=== PATIENT | male | born 1970 | race Caucasian/White ===

== ENCOUNTER 2018-07-01 17:54 | Inpatient (IN) | payer OTHER ==
[~2018-07-01] VITALS: Ht 165.1 cm; Wt 76.5 kg
[2018-07-01 21:00] VITALS: BP 151/89; PULSE 103; RESP 18
[2018-07-01 21:06] VITALS: PULSE 99
--- NOTE | 2018-07-01 22:18 | HP ---
Date/Time of Note Date/Time of Note DATE: 07/01/18 TIME: 22:18 Assessment/Plan VTE Prophylaxis SCD applied (from Nsg): Yes Pharmacological prophylaxis: NA/contraindicated Pharm contraindication: other (Patient with alcohol abuse and currently he is altered so there is no way to verify GI bleed) Assessment/Plan Assessment/Plan 1. Alcoholic intoxication/withdrawal -MVI, folic acid, thiamine -Librium with as needed Ativan -IV fluid 2. Decompensated alcoholic liver disease with ascites -Patient had a paracentesis at the outside facility, but I do not know how much was removed -Will order abdominal ultrasound here. Additional imaging with CT will be considered 3. Hypertension: BP currently was in acceptable range HPI/ROS Admit Date/Time Admit Date/Time Jul 01, 2018 at 21:05 Hx of Present Illness This is a 48-year-old male with a history of hypertension, dyslipidemia and alcohol abuse who initially presented on outside hospital complaining of abdominal pain. Symptoms been going on for the past several days. Patient has been drinking. Reportedly he was anxious and had tremors. At the outside facility he he had ultrasound-guided paracentesis. I am not sure how much was removed. Lab shows bilirubin of 3.4. I do not see aminotransferases. He was transferred to [facility] for insurance reason. Currently patient is significantly agitated with tremors. Obtaining any information has been difficult. His is at the bedside and through the help of sitter drug abuse counselor, she said that he has been drinking daily. Currently patient has been placed on restraints. PMH/Family/Social Past Medical History Medical History: other (See HPI) Medications Current Medications IV Flush (NS 3 ml) 3 ml PER PROTOCOL IV ; Start 07/01/18 at 22:30; Status UNV Lorazepam (Ativan) 1 mg Q6H PRN IV ANXIETY; Start 07/01/18 at 22:30; Status UNV Ondansetron HCl (Zofran Inj) 4 mg Q6H PRN IV NAUSEA AND/OR VOMITING; Start 07/01/18 at 22:30; Status UNV Acetaminophen (Tylenol Tab) 650 mg Q6H PRN PO PAIN LEVEL 1-3 OR FEVER; Start 07/01/18 at 22:30; Status UNV Acetaminophen/ Hydrocodone Bitart ([place] (5/325)) 1 tab Q6H PRN PO PAIN LEVEL 4-6; Start 07/01/18 at 22:30; Status UNV Famotidine (Pepcid) 20 mg Q12 PO ; Start 07/02/18 at 09:00; Status UNV Chlordiazepoxide (Librium) 50 mg TID PO ; Start 07/01/18 at 22:30; Status UNV Multivitamins Therapeutic (Theragran) 1 tab DAILY PO ; Start 07/02/18 at 09:00; Status UNV Thiamine HCl (Vitamin B1) 100 mg DAILY PO ; Start 07/02/18 at 09:00; Status UNV Folic Acid (Folic Acid) 1 mg DAILY PO ; Start 07/02/18 at 09:00; Status UNV Lorazepam (Ativan) 2 mg Q3H PRN IV etoh w/d; Start 07/01/18 at 22:30; Status UNV Coded Allergies: No Known Allergy (Unverified , 07/01/18) Past Surgical History Past Surgical Hx: other (See HPI) Family History Significant Family History: no pertinent family hx Social History Alcohol Use: heavy Smoking Status: Unknown if ever smoked Drug Use: other (Unknown) Exam/Review of Systems Exam Constitutional: other (Agitated/combative) Cardiovascular: other (Tachycardic regular rhythm) Gastrointestinal: soft XIOMARA CHARLES MD Jul 01, 2018 22:18
[2018-07-01 22:23] VITALS: Ht 165.1 cm; Wt 76.5 kg
[2018-07-01] MEDS ORDERED: CHLORDIAZEPOXIDE 25 MG CAP PO SCH (22:30)
[2018-07-01] MEDS ORDERED: HYDROCODONE/APAP (5/325) TAB PO PRN (22:30)
[2018-07-01] MEDS ORDERED: ACETAMINOPHEN 325 MG TAB PO PRN (22:30)
[2018-07-01] MEDS ORDERED: NACL 0.9% 3 ML SYG IV SCH (22:30)
[2018-07-01] MEDS ORDERED: ONDANSETRON 4 MG INJ IV PRN (22:30)
[2018-07-02] VITALS (16 sets, daily range): BP systolic 109–136; BP diastolic 59–88; PULSE 85–150; RESP 17–20
[2018-07-02] MEDS: LORAZEPAM 2 MG INJ IV PRN ×6 (01:09→23:43)
--- NOTE | 2018-07-02 04:45 | NUR ---
Patient became agitated and anxious, removing rn cardiac cath, ID band, IV saline lock, gown and trying to get out of bed. at bedside but unable to control patient. Patient at one point sat in the recycliner and doesn't want to go back in bed. Notified Dr. Christianson, per MD ok to give another dose of ativan 2mg. Patient now back in bed and able to give ativan as ordered. will continue to monitor per protocol.
[2018-07-02] MEDS ORDERED: DIPHENHYDRAMINE 50 MG INJ ONE (05:21)
[2018-07-02] MEDS ORDERED: HALOPERIDOL 5 MG INJ ONE (05:26)
[2018-07-02] MEDS ORDERED: HALOPERIDOL 5 MG INJ IM ONE (05:27)
[2018-07-02] MEDS ORDERED: DIPHENHYDRAMINE 50 MG INJ IV ONE (05:30)
--- NOTE | 2018-07-02 05:33 | NUR ---
eoss: Patient become more combative and agitated. Dr. Christianson notified. ordered for Benadryl and Haldol IM. Patient at this time in bed and calm but still confused. Safety measures followed. Chart reviewed. will continue to monitor per protocol. Plan of care remains the same.
--- NOTE | 2018-07-02 07:47 | NUR ---
0600: Patient still uncooperative. trying to get out of bed and remove lines and monitor. Sitter ordered for safety. 0635: patient combative and hitting staff and , unable to control patient. Bilateral wrist restraint started. Will notify Dr. Christianson. continue to monitor per protocol.
--- NOTE | 2018-07-02 07:58 | NUR ---
0720: Per Dr. Meghan kramer to restraint patient. will continue to monitor per protocol.
[2018-07-02] MEDS: THIAMINE 100 MG TAB PO SCH (08:58)
[2018-07-02] MEDS: FAMOTIDINE 20 MG TAB PO SCH ×2 (08:58→23:52)
[2018-07-02] MEDS ORDERED: SOD CHLORIDE 0.9% 1,000 ML IV ONE (09:00)
[2018-07-02] MEDS ORDERED: FOLIC ACID 1 MG TAB PO SCH (09:00)
[2018-07-02] MEDS ORDERED: MULTIVITAMINS THERAPEUTIC TAB PO SCH (09:00)
[2018-07-02] MEDS: CHLORDIAZEPOXIDE 25 MG CAP PO SCH ×3 (09:10→23:28)
[2018-07-02] MEDS ORDERED: LORAZEPAM 2 MG INJ IV ONE (09:30)
[2018-07-02] MEDS ORDERED: MAGNESIUM SULFATE 4 GM/100 ML 100 ML IVPB ONE (10:30)
--- NOTE | 2018-07-02 12:20 | NUR ---
Report given by PANCHO Snow to continue care for patient.
[2018-07-02] MEDS ORDERED: POTASSIUM CHLORIDE (SR) 20 MEQ TAB PO STA (13:18)
--- NOTE | 2018-07-02 13:26 | PN ---
Date/Time of Note Date/Time of Note DATE: 07/02/18 TIME: 13:23 Assessment/Plan VTE Prophylaxis Risk score (from Ns)>0 risk: 3 SCD applied (from Ns): Yes Pharmacological prophylaxis: other Lines/Catheters IV Catheter Type (from Nrs): Peripheral IV Urinary Cath still in place: No Assessment/Plan Hospital Course S: Patient agitated this morning, presently in restraints. Did take his p.o. medications per nursing staff. O: VS - see below PE: General: Lying in bed, in restraints Head: Normocephalic, atraumatic. Eyes: Pupils equal round reactive to light extra muscles are intact ENT: Moist mucous membranes Neck: Supple, no lymphadenopathy Respiratory: Lungs clear bilaterally, no distress Cardiovascular: some tachycardic heart rate Abdominal: Soft, non-tender, non-distended, no peritoneal signs MSK: No edema, no unilateral swelling Neurologic: No focal deficits Assessment/Plan: 48-year-old male with a history of hypertension, dyslipidemia and alcohol abuse who initially presented on outside hospital complaining of abdominal pain, with signs of alcohol intoxication. 1. Alcoholic intoxication/withdrawal -patient now requiring restraints. -Continue MVI, folic acid, thiamine -Patient also taking p.o. Librium with as needed Ativan -IV fluid, will also add banana bag 2. Decompensated alcoholic liver disease with ascites-Patient had a parace ntesis at the outside facility, but apparently unclear how much fluid was removed -Ordered for abdominal ultrasound here, follow-up results - Given distention seen on physical exam, patient may benefit from paracentesis, again will follow up the abdominal ultrasound results first -Also check ammonia levels, strong suspicion of possible advanced liver disease, particularly given the elevated liver function tests 3. Hypertension: BP currently was in acceptable range -Monitor for now Result Diagram: 07/02/18 0633 07/02/18 0633 Results 24hrs Laboratory Tests Test 07/02/18 06:33 White Blood Count 9.9 Red Blood Count 3.49 L Hemoglobin 12.9 L Hematocrit 36.0 L Mean Corpuscular Volume 103.2 H Mean Corpuscular Hemoglobin 37.0 H Mean Corpuscular Hemoglobin Concent 35.8 Red Cell Distribution Width 13.6 Platelet Count 108 L Mean Platelet Volume 10.4 Immature Granulocytes % 0.400 Neutrophils % 74.5 Lymphocytes % 11.9 L Monocytes % 9.9 Eosinophils % 2.4 Basophils % 0.9 Nucleated Red Blood Cells % 0.0 Immature Granulocytes # 0.040 H Neutrophils # 7.4 Lymphocytes # 1.2 Monocytes # 1.0 H Eosinophils # 0.2 Basophils # 0.1 Nucleated Red Blood Cells # 0.0 Sodium Level 138 Potassium Level 3.2 L Chloride Level 101 Carbon Dioxide Level 27 Anion Gap 10 Blood Urea Nitrogen 6 L Creatinine 0.49 L Est Glomerular Filtrat Rate mL/min > 60 Glucose Level 92 Hemoglobin A1c 4.6 Calcium Level 9.0 Magnesium Level 1.2 L Total Bilirubin 2.6 H Direct Bilirubin 0.40 H Indirect Bilirubin 2.2 H Aspartate Amino Transf (AST/SGOT) 99 H Alanine Aminotransferase (ALT/SGPT) 21 Alkaline Phosphatase 156 H Total Protein 7.5 Albumin 2.9 L Globulin 4.60 H Albumin/Globulin Ratio 0.63 Triglycerides Level 77 Cholesterol Level 124 LDL Cholesterol, Calculated 83 HDL Cholesterol 26 L Cholesterol/HDL Ratio 4.7 Hepatitis B Surface Antigen NEGATIVE Hepatitis B Surface Antibody NEGATIVE Hepatitis B Core Total Antibody NEGATIVE Hepatitis C Antibody Pending Exam/Review of Systems Vital Signs Vitals Vital Signs Date Temp Pulse Resp B/P (MAP) Pulse Ox O2 O2 Flow FiO2 Time Delivery Rate 07/02/18 98.2 94 20 122/69 90 Room Air 12:24 (86) Medications Medications Current Medications IV Flush (NS 3 ml) 3 ml PER PROTOCOL IV ; Start 07/01/18 at 22:30 Lorazepam (Ativan) 1 mg Q6H PRN IV ANXIETY Last administered on 07/02/18at 01:09; Admin Dose 1 MG; Start 07/01/18 at 22:30 Ondansetron HCl (Zofran Inj) 4 mg Q6H PRN IV NAUSEA AND/OR VOMITING; Start 07/01/18 at 22:30 Acetaminophen (Tylenol Tab) 650 mg Q6H PRN PO PAIN LEVEL 1-3 OR FEVER; Start 07/01/18 at 22:30 Acetaminophen/ Hydrocodone Bitart ([place] (5/325)) 1 tab Q6H PRN PO PAIN LEVEL 4-6; Start 07/01/18 at 22:30 Famotidine (Pepcid) 20 mg Q12 PO Last administered on 07/02/18at 08:58; Admin Dose 20 MG; Start 07/02/18 at 09:00 Multivitamins Therapeutic (Theragran) 1 tab DAILY PO Last administered on 07/02/18 08:58; Admin Dose 1 TAB; Start 07/02/18 at 09:00 Thiamine HCl (Vitamin B1) 100 mg DAILY PO Last administered on 07/02/18 08:58; Admin Dose 100 MG; Start 07/02/18 at 09:00 Folic Acid (Folic Acid) 1 mg DAILY PO Last administered on 07/02/18 08:57; Admin Dose 1 MG; Start 07/02/18 at 09:00 Lorazepam (Ativan) 2 mg Q3H PRN IV etoh w/d Last administered on 07/02/18 07:33; Admin Dose 2 MG; Start 07/01/18 at 22:30 Chlordiazepoxide (Librium) 100 mg TID PO Last administered on 07/02/18 09:10; Admin Dose 100 MG; Start 07/02/18 at 09:00 Magnesium Sulfate 100 ml @ 25 mls/hr ONCE ONCE IVPB Last administered on 07/02/18at 10:37; Admin Dose 25 MLS/HR; Start 07/02/18 at 10:30; Stop 07/02/18 at 14:29 Sodium Chloride 1,000 ml @ 100 mls/hr Q10H IV ; Start 07/02/18 at 12:00 Multivitamins 10 ml/Thiamine HCl 100 mg/Folic Acid 1 mg/Sodium Chloride 1,011.2 ml @ 125 mls/ hr DAILY@09 IVPB ; Start 07/03/18 at 09:00; Status LETI WOMACK Jul 02, 2018 13:26
[2018-07-02] MEDS: SOD CHLORIDE 0.9% 1,000 ML IV SCH ×2 (14:00→23:52)
[2018-07-02] MEDS: MULTIVITAMINS 10 ML, FOLIC ACID 1 MG in SOD CHLORIDE 0.9% 1,000 ML IVPB SCH (14:13)
[2018-07-03] VITALS (19 sets, daily range): BP systolic 102–129; BP diastolic 62–76; PULSE 79–97; RESP 18–19
[2018-07-03] MEDS: SOD CHLORIDE 0.9% 1,000 ML IV SCH ×2 (08:00→17:50)
[2018-07-03] MEDS: MULTIVITAMINS 10 ML, FOLIC ACID 1 MG in SOD CHLORIDE 0.9% 1,000 ML IVPB SCH (08:28)
[2018-07-03] MEDS: THIAMINE 100 MG TAB PO SCH (08:29)
[2018-07-03] MEDS: FAMOTIDINE 20 MG TAB PO SCH ×2 (08:29→21:15)
[2018-07-03] MEDS: CHLORDIAZEPOXIDE 25 MG CAP PO SCH ×3 (08:29→21:16)
--- NOTE | 2018-07-03 11:41 | PN ---
Date/Time of Note Date/Time of Note DATE: 07/03/18 TIME: 11:38 Assessment/Plan VTE Prophylaxis Risk score (from Ns)>0 risk: 4 SCD applied (from Ns): Yes Pharmacological prophylaxis: other Lines/Catheters IV Catheter Type (from Nrsg): Peripheral IV Urinary Cath still in place: No (CONDOM CATH) Assessment/Plan Hospital Course S: Patient less agitated this morning, still in restraints. O: VS - see below PE: General: Lying in bed, in restraints, family at the bedside Head: Normocephalic, atraumatic. Eyes: Pupils equal round reactive to light extra muscles are intact ENT: Moist mucous membranes Neck: Supple, no lymphadenopathy Respiratory: Lungs clear bilaterally, no distress Cardiovascular: some tachycardic heart rate Abdominal: Soft, non-tender, non-distended, no peritoneal signs MSK: No edema, no unilateral swelling Neurologic: No focal deficits Abdominal ultrasound July 02, 2018: IMPRESSION: Liver cirrhosis with a small amount of ascites. Thickened and edematous gallbladder wall with no evidence of gallstones. Assessment/Plan: 48-year-old male with a history of hypertension, dyslipidemia and alcohol abuse who initially presented on outside hospital complaining of abdominal pain, with signs of alcohol intoxication. 1. Alcoholic intoxication/withdrawal -slowly improving, patient on restraints. -Continue MVI, folic acid, thiamine -Continue p.o. Librium with as needed Ativan -IV fluid, banana bag 2. Decompensated alcoholic liver disease with ascites-Patient had a paracentesis at the outside facility, but apparently unclear how much fluid was removed -Patient has elevated ammonia levels, add lactulose, trend ammonia -Counseled on drinking cessation 3. Hypertension: BP stable -Monitor for now Result Diagram: 07/03/18 0626 07/02/18 0633 Results 24hrs Laboratory Tests Test 07/02/18 18:27 07/03/18 06:26 07/03/18 09:10 Ammonia 34 H 57 #H White Blood Count 7.7 # Red Blood Count 3.09 L Hemoglobin 11.6 L Hematocrit 32.4 L Mean Corpuscular Volume 104.9 H Mean Corpuscular Hemoglobin 37.5 H Mean Corpuscular Hemoglobin Concent 35.8 Red Cell Distribution Width 14.4 Platelet Count 83 #L Mean Platelet Volume 10.4 Immature Granulocytes % 0.500 H Neutrophils % 68.6 Lymphocytes % 14.5 L Monocytes % 10.7 Eosinophils % 4.7 Basophils % 1.0 Nucleated Red Blood Cells % 0.0 Immature Granulocytes # 0.040 H Neutrophils # 5.3 Lymphocytes # 1.1 Monocytes # 0.8 Eosinophils # 0.4 Basophils # 0.1 Nucleated Red Blood Cells # 0.0 Phosphorus Level 3.6 Magnesium Level 1.6 L Total Bilirubin 2.6 H Direct Bilirubin 0.50 H Indirect Bilirubin 2.1 H Aspartate Amino Transf (AST/SGOT) 87 H Alanine Aminotransferase (ALT/SGPT) 23 Alkaline Phosphatase 117 Total Protein 6.2 # Albumin 2.4 L Urine Color TOMMIE Urine Clarity CLOUDY A Urine pH 8.0 Urine Specific [place] 1.009 Urine Ketones NEGATIVE Urine Nitrite NEGATIVE Urine Bilirubin NEGATIVE Urine Urobilinogen 1+ H Urine Leukocyte Esterase NEGATIVE Urine Microscopic RBC 1 Urine Microscopic WBC 2 Urine Amorphous Crystals FEW A Urine Bacteria FEW A Urine Hemoglobin NEGATIVE Urine Glucose NEGATIVE Urine Total Protein NEGATIVE Exam/Review of Systems Vital Signs Vitals Vital Signs Date Temp Pulse Resp B/P (MAP) Pulse Ox O2 O2 Flow FiO2 Time Delivery Rate 07/03/18 97.4 81 18 102/67 98 10:47 (79) 07/02/18 Room Air 12:24 Intake and Output 07/02/18 07/02/18 07/03/18 1515:00 23:00 07:00 IntakeIntake Total 100 ml 1075 ml BalanceBalance 100 ml 1075 ml Medications Medications Current Medications IV Flush (NS 3 ml) 3 ml PER PROTOCOL IV ; Start 07/01/18 at 22:30 Lorazepam (Ativan) 1 mg Q6H PRN IV ANXIETY Last administered on 07/02/18at 01 :09; Admin Dose 1 MG; Start 07/01/18 at 22:30 Ondansetron HCl (Zofran Inj) 4 mg Q6H PRN IV NAUSEA AND/OR VOMITING; Start 07/01/18 at 22:30 Acetaminophen (Tylenol Tab) 650 mg Q6H PRN PO PAIN LEVEL 1-3 OR FEVER; Start 07/01/18 at 22:30 Acetaminophen/ Hydrocodone Bitart ([place] (5/325)) 1 tab Q6H PRN PO PAIN LEVEL 4-6; Start 07/01/18 at 22:30 Famotidine (Pepcid) 20 mg Q12 PO Last administered on 07/03/18 08:29; Admin Dose 20 MG; Start 07/02/18 at 09:00 Multivitamins Therapeutic (Theragran) 1 tab DAILY PO Last administered on 07/02/18 08:58; Admin Dose 1 TAB; Start 07/02/18 at 09:00; Status Hold Thiamine HCl (Vitamin B1) 100 mg DAILY PO Last administered on 07/03/18 08:29; Admin Dose 100 MG; Start 07/02/18 at 09:00 Folic Acid (Folic Acid) 1 mg DAILY PO Last administered on 07/02/18 08:57; Admin Dose 1 MG; Start 07/02/18 at 09:00; Status Hold Lorazepam (Ativan) 2 mg Q3H PRN IV etoh w/d Last administered on 07/02/18 23:43; Admin Dose 2 MG; Start 07/01/18 at 22:30 Chlordiazepoxide (Librium) 100 mg TID PO Last administered on 07/03/18 08:29; Admin Dose 100 MG; Start 07/02/18 at 09:00 Sodium Chloride 1,000 ml @ 100 mls/hr Q10H IV Last administered on 07/02/18 23:52; Admin Dose 100 MLS/HR; Start 07/02/18 at 12:00 Multivitamins 10 ml/Folic Acid 1 mg/Sodium Chloride 1,010.2 ml @ 125 mls/ hr DAILY@09 IVPB Last administered on 07/03/18 08:28; Admin Dose 125 MLS/HR; Sta rt 07/02/18 at 15:00 Magnesium Sulfate 50 ml @ 25 mls/hr ONCE ONCE IVPB ; Start 07/03/18 at 12:00; Stop 07/03/18 at 13:59; Status LETI WOMACK Jul 03, 2018 11:41
[2018-07-03] MEDS ORDERED: MAGNESIUM SULFATE 2 GM/50 ML 50 ML IVPB ONE (12:00)
[2018-07-03] MEDS: LACTULOSE 30ML CUP PO SCH ×3 (12:08→21:15)
[2018-07-03] MEDS ORDERED: POTASSIUM CHLORIDE (SR) 20 MEQ TAB PO STA (13:25)
--- NOTE | 2018-07-03 18:54 | NUR ---
EOSS: Patient is AAOx2-3, more alert and able to follow commands today. SR on the monitor. VSS. Bilateral soft limb restraints in place as pt still has periods of agitation. 1 large BM during shift. Condom cath in place. Repositioned q2h w/ assist. Able to take meds crushed w/ chocolate pudding. Family at bedside. Hourly rounding done, fall precautions initiated, all needs attended. Pt is stable - will endorse to oncoming shift.
[2018-07-04] VITALS (17 sets, daily range): BP systolic 112–126; BP diastolic 70–81; PULSE 65–99; RESP 18–20
[2018-07-04] MEDS: SOD CHLORIDE 0.9% 1,000 ML IV SCH ×2 (04:01→14:00)
[2018-07-04] MEDS: LACTULOSE 30ML CUP PO SCH ×3 (05:41→21:49)
[2018-07-04] MEDS: CHLORDIAZEPOXIDE 25 MG CAP PO SCH ×2 (09:10→21:50)
[2018-07-04] MEDS: THIAMINE 100 MG TAB PO SCH (09:12)
[2018-07-04] MEDS: FAMOTIDINE 20 MG TAB PO SCH ×2 (09:12→21:50)
[2018-07-04] MEDS: SPIRONOLACTONE 50 MG TAB PO SCH (09:13)
[2018-07-04] MEDS: MULTIVITAMINS 10 ML, FOLIC ACID 1 MG in SOD CHLORIDE 0.9% 1,000 ML IVPB SCH (09:17)
[2018-07-04] MEDS: LORAZEPAM 2 MG INJ IV PRN (09:51)
--- NOTE | 2018-07-04 10:41 | PN ---
Date/Time of Note Date/Time of Note DATE: 07/04/18 TIME: 10:35 Assessment/Plan VTE Prophylaxis Risk score (from Ns)>0 risk: 4 SCD applied (from Ns): Yes Pharmacological prophylaxis: NA/contraindicated Pharm contraindication: low risk/ambulating Lines/Catheters IV Catheter Type (from Nrs): Peripheral IV Urinary Cath still in place: No (Condom Cath) Assessment/Plan Assessment/Plan 48-year-old male with a history of hypertension, dyslipidemia and alcohol abuse who initially presented on outside hospital complaining of abdominal pain, with signs of alcohol intoxication. # Alcoholic intoxication/withdrawal - Frequent reorientation. - Continue MVI, folic acid, thiamine - Continue p.o. Librium with as needed Ativan - IV fluid, banana bag #L eye blepharitis/conjunctivitis - Ophthalmic gentamicin - Warm damp washcloth to clean eye # Cirrhosis with ascites - Patient had a paracentesis at the outside facility, but apparently unclear how much fluid was removed - Mental status is more consistent with delerium/EtOH withdrawal instead of hepatic encephalopathy.... but will continue lactulose. - Counseled on drinking cessation #Tobacco use - Multiple cigars per day - Will start nicotine patch. Result Diagram: 07/04/18 0552 07/04/18 0552 Results 24hrs Laboratory Tests Test 07/03/18 12:11 07/04/18 05:52 Sodium Level 142 142 Potassium Level 3.2 L 3.2 L Chloride Level 111 H 113 H Carbon Dioxide Level 24 24 Anion Gap 7 5 Blood Urea Nitrogen 5 L 4 L Creatinine 0.41 L 0.42 L Est Glomerular Filtrat Rate mL/min > 60 > 60 Glucose Level 86 82 Calcium Level 8.4 8.2 L White Blood Count 7.7 Red Blood Count 3.33 L Hemoglobin 12.4 L Hematocrit 34.5 L Mean Corpuscular Volume 103.6 H Mean Corpuscular Hemoglobin 37.2 H Mean Corpuscular Hemoglobin Concent 35.9 Red Cell Distribution Width 14.2 Platelet Count 92 L Mean Platelet Volume 9.8 Immature Granulocytes % 0.300 Neutrophils % 69.3 Lymphocytes % 14.0 L Monocytes % 11.7 H Eosinophils % 3.8 Basophils % 0.9 Nucleated Red Blood Cells % 0.0 Immature Granulocytes # 0.020 Neutrophils # 5.3 Lymphocytes # 1.1 Monocytes # 0.9 Eosinophils # 0.3 Basophils # 0.1 Nucleated Red Blood Cells # 0.0 Phosphorus Level 3.1 Magnesium Level 1.5 L Ammonia 30 # Subjective 24 Hr Interval Summary Free Text/Dictation Patient combative, trying to get out of bed, not responding to commands this morning; got Ativan. and daughter at bedside. Reporting patient is a heavy smoker in addition to heavy alcohol use. He is much more confused and disoriented than usual baseline. Exam/Review of Systems Vital Signs Vitals Vital Signs Date Temp Pulse Resp B/P (MAP) Pulse Ox O2 O2 Flow FiO2 Time Delivery Rate 07/04/18 97.7 87 18 122/76 94 09:32 (91) 07/02/18 Room Air 12:24 Intake and Output 07/03/18 07/03/18 07/04/18 1515:00 23:00 07:00 IntakeIntake Total 1850 ml 250 ml OutputOutput Total 700 ml 2000 ml BalanceBalance 1150 ml -1750 ml Exam General: Lying in bed, in restraints, family at the bedside Head: Normocephalic, atraumatic. Eyes: L eye with what appears to be blepharitis with yellow crusted exudate ENT: Moist mucous membranes Neck: Supple, no lymphadenopathy Respiratory: Lungs clear bilaterally, no distress Cardiovascular: some tachycardic heart rate Abdominal: Soft, non-tender, non-distended, no peritoneal signs MSK: No edema, no unilateral swelling Neurologic: A&O to name only; disoriented to location ("home"), time ("year is 999, month is 9"), and situation. Recognizes and daughter at bedside. Medications Medications Current Medications IV Flush (NS 3 ml) 3 ml PER PROTOCOL IV ; Start 07/01/18 at 22:30 Lorazepam (Ativan) 1 mg Q6H PRN IV ANXIETY Last administered on 07/02/18at 01:09; Admin Dose 1 MG; Start 07/01/18 at 22:30 Ondansetron HCl (Zofran Inj) 4 mg Q6H PRN IV NAUSEA AND/OR VOMITING; Start 07/01/18 at 22:30 Acetaminophen (Tylenol Tab) 650 mg Q6H PRN PO PAIN LEVEL 1-3 OR FEVER; Start 07/01/18 at 22:30 Acetaminophen/ Hydrocodone Bitart ([place] (5/325)) 1 tab Q6H PRN PO PAIN LEVEL 4-6; Start 07/01/18 at 22:30 Famotidine (Pepcid) 20 mg Q12 PO Last administered on 07/04/18 09:12; Admin Dose 20 MG; Start 07/02/18 at 09:00 Multivitamins Therapeutic (Theragran) 1 tab DAILY PO Last administered on 07/02/18 08:58; Admin Dose 1 TAB; Start 07/02/18 at 09:00; Status Hold Thiamine HCl (Vitamin B1) 100 mg DAILY PO Last administered on 07/04/18 09:12; Admin Dose 100 MG; Start 07/02/18 at 09:00 Folic Acid (Folic Acid) 1 mg DAILY PO Last administered on 07/02/18 08:57; Admin Dose 1 MG; Start 07/02/18 at 09:00; Status Hold Lorazepam (Ativan) 2 mg Q3H PRN IV etoh w/d Last administered on 07/04/18 09:51; Admin Dose 2 MG; Start 07/01/18 at 22:30 Sodium Chloride 1,000 ml @ 100 mls/hr Q10H IV Last administered on 07/04/18 04:01; Admin Dose 100 MLS/HR; Start 07/02/18 at 12:00 Multivitamins 10 ml/Folic Acid 1 mg/Sodium Chloride 1,010.2 ml @ 125 mls/ hr DAILY@09 IVPB Last administered on 07/04/18 09:17; Admin Dose 125 MLS/HR; Start 07/02/18 at 15:00 Lactulose (Enulose) 20 gm Q8 PO Last administered on 07/04/18 05:41; Admin Dose 20 GM; Start 07/03/18 at 12:00 Spironolactone (Aldactone) 50 mg DAILY PO Last administered on 07/04/18 09:13; Admin Dose 50 MG; Start 07/04/18 at 09:00 Chlordiazepoxide (Librium) 100 mg Q12H PO Last administered on 07/04/18 09:10; Admin Dose 100 MG; Start 07/04/18 at 09:00 LUI GENAO MD Jul 04, 2018 10:41
[2018-07-04] MEDS ORDERED: GENTAMICIN 0.3% 3.5 GM OPH OINT LEFT EYE SCH (11:00)
[2018-07-04] MEDS: NICOTINE (21 MG/24 HR) PATCH TRANSDERM SCH (11:00)
[2018-07-04] MEDS ORDERED: POTASSIUM CHLORIDE (SR) 20 MEQ TAB PO STA (11:33)
[2018-07-04] MEDS: GENTAMICIN 0.3% 5 ML OPH LEFT EYE SCH ×3 (12:20→21:51)
--- NOTE | 2018-07-04 15:43 | NUR ---
pt is a/ox1, very confused , the family was at the bedside and pt did not even know that is his and daughter , pull out his IV again , and also the condom cath 2 times and his legs are always outside the bed rail . family at the bedside however , they did not really do anything. there are more than 15 people in the room and many kids, very noisy. notified to charge nurse, and report to PANCHO lopez.
--- NOTE | 2018-07-04 19:59 | NUR ---
EOSS: pt VSS, confused and easily agitated, on restraints (renewed during day shift), family educated on need for visitor policy to ensure safety and reduce stimuli for pt. Family agreed but still had many visitors throughout day but were much quieter and pt's agitation subsided. Took over pt from JuChen at 1600. All needs met and questions answered to best of ability.
[2018-07-05] VITALS (18 sets, daily range): BP systolic 99–128; BP diastolic 61–83; PULSE 68–87; RESP 16–21
[2018-07-05] MEDS: GENTAMICIN 0.3% 5 ML OPH LEFT EYE SCH ×6 (01:00→21:29)
[2018-07-05] MEDS: LACTULOSE 30ML CUP PO SCH ×3 (06:19→21:27)
[2018-07-05] MEDS ORDERED: POTASSIUM CHLORIDE 20 MEQ POWDER FOR ORAL SOLN PO ONE (09:00)
[2018-07-05] MEDS: MULTIVITAMINS 10 ML, FOLIC ACID 1 MG in SOD CHLORIDE 0.9% 1,000 ML IVPB SCH (09:08)
[2018-07-05] MEDS: THIAMINE 100 MG TAB PO SCH (09:09)
[2018-07-05] MEDS: SPIRONOLACTONE 50 MG TAB PO SCH (09:09)
[2018-07-05] MEDS: CHLORDIAZEPOXIDE 25 MG CAP PO SCH ×2 (09:09→21:28)
[2018-07-05] MEDS: FAMOTIDINE 20 MG TAB PO SCH ×2 (09:10→21:28)
[2018-07-05] MEDS: NICOTINE (21 MG/24 HR) PATCH TRANSDERM SCH (09:11)
[2018-07-05] MEDS ORDERED: MAGNESIUM SULFATE 4 GM/100 ML 100 ML IVPB ONE (09:30)
[2018-07-05] MEDS: SOD CHLORIDE 0.9% 1,000 ML IV SCH ×3 (10:00→20:00)
--- NOTE | 2018-07-05 14:24 | PN ---
Date/Time of Note Date/Time of Note DATE: 07/05/18 TIME: 14:23 Assessment/Plan VTE Prophylaxis Risk score (from Ns)>0 risk: 4 SCD applied (from Ns): Yes Pharmacological prophylaxis: NA/contraindicated Pharm contraindication: low risk/ambulating Lines/Catheters IV C[facility] Type (from [facility]): Peripheral IV Urinary Cath still in place: No Assessment/Plan Assessment/Plan 48-year-old male with a history of hypertension, dyslipidemia and alcohol abuse who initially presented on outside hospital complaining of abdominal pain, with signs of alcohol intoxication. # Alcoholic intoxication/withdrawal - Frequent reorientation. - Continue MVI, folic acid, thiamine - Continue p.o. Librium with as needed Ativan - IV fluid, banana bag #L eye blepharitis/conjunctivitis - Ophthalmic gentamicin - Warm damp washcloth to clean eye # Cirrhosis with ascites - Patient had a paracentesis at the outside facility, but apparently unclear how much fluid was removed - Mental status is more consistent with delerium/EtOH withdrawal instead of hepatic encephalopathy.... but will continue lactulose. - Counseled on drinking cessation #Tobacco use - Multiple cigars per day - nicotine patch. Result Diagram: 07/05/18 0617 07/05/18 0617 Results 24hrs Laboratory Tests Test 07/05/18 06:17 White Blood Count 7.3 Red Blood Count 3.31 L Hemoglobin 12.4 L Hematocrit 35.3 L Mean Corpuscular Volume 106.6 H Mean Corpuscular Hemoglobin 37.5 H Mean Corpuscular Hemoglobin Concent 35.1 Red Cell Distribution Width 14.1 Platelet Count 92 L Mean Platelet Volume 9.9 Immature Granulocytes % 0.600 H Neutrophils % 65.4 Lymphocytes % 14.2 L Monocytes % 12.6 H Eosinophils % 5.7 Basophils % 1.5 Nucleated Red Blood Cells % 0.0 Immature Granulocytes # 0.040 H Neutrophils # 4.8 Lymphocytes # 1.0 Monocytes # 0.9 Eosinophils # 0.4 Basophils # 0.1 Nucleated Red Blood Cells # 0.0 Prothrombin Time 20.3 H Prothrombin Time Ratio 1.6 INR International Normalized Ratio 1.73 Activated Partial Thromboplast Time 42.5 H Sodium Level 140 Potassium Level 3.3 L Chloride Level 108 Carbon Dioxide Level 27 Anion Gap 5 Blood Urea Nitrogen 4 L Creatinine 0.49 L Est Glomerular Filtrat Rate mL/min > 60 Glucose Level 77 Calcium Level 8.3 L Phosphorus Level 3.6 Magnesium Level 1.2 L Total Bilirubin 1.7 H Direct Bilirubin 0.00 # Indirect Bilirubin 1.7 H Aspartate Amino Transf (AST/SGOT) 80 H Alanine Aminotransferase (ALT/SGPT) 27 Alkaline Phosphatase 111 Total Protein 6.3 Albumin 2.4 L Globulin 3.90 H Albumin/Globulin Ratio 0.61 Subjective 24 Hr Interval Summary Free Text/Dictation Patient resting in bed sleeping comfortably. Exam/Review of Systems Vital Signs Vitals Vital Signs Date Temp Pulse Resp B/P (MAP) Pulse Ox O2 O2 Flow FiO2 Time Delivery Rate 07/05/18 83 12:43 07/05/18 97.4 20 113/73 97 12:25 (86) 07/05/18 2.0 27 04:50 07/02/18 Room Air 12:24 Intake and Output 07/04/18 07/04/18 07/05/18 1515:00 23:00 07:00 IntakeIntake Total 200 ml 400 ml BalanceBalance 200 ml 400 ml Exam General: Lying in bed, in restraints, family at the bedside, sleeping comfortably Head: Normocephalic, atraumatic. Eyes: L eye with what appears to be blepharitis with yellow crusted exudate ENT: Moist mucous membranes Neck: Supple, no lymphadenopathy Respiratory: Lungs clear bilaterally, no distress Cardiovascular: some tachycardic heart rate Abdominal: Soft, non-tender, non-distended, no peritoneal signs MSK: No edema, no unilateral swelling Medications Medications Current Medications IV Flush (NS 3 ml) 3 ml PER PROTOCOL IV ; Start 07/01/18 at 22:30 Lorazepam (Ativan) 1 mg Q6H PRN IV ANXIETY Last administered on 07/02/18at 01:09; Admin Dose 1 MG; Start 07/01/18 at 22:30 Ondansetron HCl (Zofran Inj) 4 mg Q6H PRN IV NAUSEA AND/OR VOMITING; Start 07/01/18 at 22:30 Acetaminophen (Tylenol Tab) 650 mg Q6H PRN PO PAIN LEVEL 1-3 OR FEVER; Start 07/01/18 at 22:30 Acetaminophen/ Hydrocodone Bitart ([place] (5/325)) 1 tab Q6H PRN PO PAIN LEVEL 4-6 Last administered on 07/04/18 12:28; Admin Dose 1 TAB; Start 07/01/18 at 22:30 Famotidine (Pepcid) 20 mg Q12 PO Last administered on 07/05/18 09:10; Admin Dose 20 MG; Start 07/02/18 at 09:00 Multivitamins Therapeutic (Theragran) 1 tab DAILY PO Last administered on 07/02/18 08:58; Admin Dose 1 TAB; Start 07/02/18 at 09:00; Status Hold Thiamine HCl (Vitamin B1) 100 mg DAILY PO Last administered on 07/05/18 09:09; Admin Dose 100 MG; Start 07/02/18 at 09:00 Folic Acid (Folic Acid) 1 mg DAILY PO Last administered on 07/02/18 08:57; Admin Dose 1 MG; Start 07/02/18 at 09:00; Status Hold Lorazepam (Ativan) 2 mg Q3H PRN IV etoh w/d Last administered on 07/04/18 09:51; Admin Dose 2 MG; Start 07/01/18 at 22:30 Sodium Chloride 1,000 ml @ 100 mls/hr Q10H IV Last administered on 07/05/18 00:00; Admin Dose 100 MLS/HR; Start 07/02/18 at 12:00 Multivitamins 10 ml/Folic Acid 1 mg/Sodium Chloride 1,010.2 ml @ 125 mls/ hr DAILY@09 IVPB Last administered on 07/05/18 09:08; Admin Dose 125 MLS/HR; Start 07/02/18 at 15:00 Lactulose (Enulose) 20 gm Q8 PO Last administered on 07/05/18 06:19; Admin Dose 20 GM; Start 07/03/18 at 12:00 Spironolactone (Aldactone) 50 mg DAILY PO Last administered on 07/05/18 09:09; Admin Dose 50 MG; Start 07/04/18 at 09:00 Nicotine (Nicoderm 21 Mg/ 24hr) 1 patch DAILY TRANSDERM Last administered on 07/05/18 09:11; Admin Dose 1 PATCH; Start 07/04/18 at 11:00 Gentamicin Sulfate (Gentamicin 0.3% Oph Drop) 1 drop Q4 LEFT EYE Last administered on 07/05/18 13:31; Admin Dose 1 DROP; Start 07/04/18 at 13:00 Chlordiazepoxide (Librium) 50 mg Q12H PO ; Start 07/05/18 at 21:00 LUI GENAO MD Jul 05, 2018 14:24
--- NOTE | 2018-07-05 19:06 | NUR ---
EOSS: Pt. remained stable during shift. Pt. remained on restraints during shift. Clinical behavior unchanged. 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 Hourly rounding complete. All needs meet. Bed in lowest position. Bed alarm on. at bedside aware about plan of care. Administered all medications as scheduled. Will continue to monitor and report care to oncoming shift.
[2018-07-06] VITALS (7 sets, daily range): BP systolic 95–123; BP diastolic 53–79; PULSE 79–89; RESP 18–20
[2018-07-06] MEDS: GENTAMICIN 0.3% 5 ML OPH LEFT EYE SCH ×6 (01:00→20:36)
[2018-07-06] MEDS: LORAZEPAM 2 MG INJ IV PRN (02:44)
[2018-07-06] MEDS: LACTULOSE 30ML CUP PO SCH ×3 (05:12→20:36)
[2018-07-06] MEDS: SOD CHLORIDE 0.9% 1,000 ML IV SCH (05:12)
--- NOTE | 2018-07-06 07:49 | NUR ---
Nurses Note: Pt. off unit for AICD placement with Dr. Espinal. Addendum: 07/06/18 at 0750 by JENNA TAYLOR RN Amended: Links added. Addendum: 07/06/18 at 1019 by JENNA TAYLOR RN IGNORE. Charted on the wrong patient.
[2018-07-06] MEDS: MULTIVITAMINS 10 ML, FOLIC ACID 1 MG in SOD CHLORIDE 0.9% 1,000 ML IVPB SCH (09:07)
[2018-07-06] MEDS: FAMOTIDINE 20 MG TAB PO SCH ×2 (09:08→20:36)
[2018-07-06] MEDS: NICOTINE (21 MG/24 HR) PATCH TRANSDERM SCH (09:08)
[2018-07-06] MEDS: SPIRONOLACTONE 50 MG TAB PO SCH (09:08)
[2018-07-06] MEDS: CHLORDIAZEPOXIDE 25 MG CAP PO SCH (09:08)
[2018-07-06] MEDS: THIAMINE 100 MG TAB PO SCH (09:08)
--- NOTE | 2018-07-06 12:30 | NUR ---
Nurses Note: Called [facility] and gave report to Trish for this patient going to room 5559. Pt. alert to self and situation. is at bedside. All belongings with patient. Pt. will be transferred via Wheel Chair. Pt. is on room air. Vital signs stable upon transfer.
--- NOTE | 2018-07-06 12:42 | NUR ---
Received report from Saul DELEON. Pt to be transferred shortly after room is cleaned up. Will resume care when patient is here on the unit. Pt will go to [facility]
--- NOTE | 2018-07-06 13:07 | PN ---
Date/Time of Note Date/Time of Note DATE: 07/06/18 TIME: 13:00 Assessment/Plan VTE Prophylaxis Risk score (from Ns)>0 risk: 2 SCD applied (from Ns): Yes Pharmacological prophylaxis: NA/contraindicated Pharm contraindication: low risk/ambulating Lines/Catheters IV Catheter Type (from Nrs): Peripheral IV Urinary Cath still in place: No Assessment/Plan Assessment/Plan 48-year-old male with a history of hypertension, dyslipidemia and alcohol abuse who initially presented on outside hospital complaining of abdominal pain, with signs of alcohol intoxication. # Alcoholic intoxication/withdrawal - Frequent reorientation. - Continue MVI, folic acid, thiamine - s/p Librium taper, will continue prn Ativan. #L eye blepharitis/conjunctivitis - Ophthalmic gentamicin - Warm damp washcloth to clean eye # Cirrhosis with ascites - Patient had a paracentesis at the outside facility, but apparently unclear how much fluid was removed - Mental status is more consistent with delerium/EtOH withdrawal instead of hepatic encephalopathy.... but will continue lactulose. - Counseled on drinking cessation #Tobacco use - Multiple cigars per day - nicotine patch. Dispo: PT for mobility. If patient ambulatory, anticipate discharge in 1-2 days. Result Diagram: 07/06/18 0551 07/06/18 0551 Results 24hrs Laboratory Tests Test 07/06/18 05:51 White Blood Count 7.7 Red Blood Count 3.40 L Hemoglobin 12.7 L Hematocrit 35.1 L Mean Corpuscular Volume 103.2 H Mean Corpuscular Hemoglobin 37.4 H Mean Corpuscular Hemoglobin Concent 36.2 Red Cell Distribution Width 13.7 Platelet Count 92 L Mean Platelet Volume 9.8 Immature Granulocytes % 0.500 H Neutrophils % 67.3 Lymphocytes % 14.7 L Monocytes % 12.8 H Eosinophils % 3.4 Basophils % 1.3 Nucleated Red Blood Cells % 0.0 Immature Granulocytes # 0.040 H Neutrophils # 5.2 Lymphocytes # 1.1 Monocytes # 1.0 H Eosinophils # 0.3 Basophils # 0.1 Nucleated Red Blood Cells # 0.0 Sodium Level 144 Potassium Level 3.6 Chloride Level 109 Carbon Dioxide Level 25 Anion Gap 10 # Blood Urea Nitrogen 3 L Creatinine 0.43 L Est Glomerular Filtrat Rate mL/min > 60 Glucose Level 82 Calcium Level 8.3 L Total Bilirubin 1.5 H Direct Bilirubin 0.00 Indirect Bilirubin 1.5 H Aspartate Amino Transf (AST/SGOT) 79 H Alanine Aminotransferase (ALT/SGPT) 28 Alkaline Phosphatase 120 Total Protein 6.5 Albumin 2.4 L Globulin 4.10 H Albumin/Globulin Ratio 0.58 Subjective 24 Hr Interval Summary Free Text/Dictation Patient more awake and less combative today. Off restraints he is able to sit up and stand independently. Exam/Review of Systems Vital Signs Vitals Vital Signs Date Temp Pulse Resp B/P (MAP) Pulse Ox O2 O2 Flow FiO2 Time Delivery Rate 07/06/18 98.2 86 20 107/69 98 11:29 (82) 07/05/18 2.0 27 04:50 07/02/18 Room Air 12:24 Intake and Output 07/05/18 07/05/18 07/06/18 1515:00 23:00 07:00 IntakeIntake Total 1400 ml 350 ml BalanceBalance 1400 ml 350 ml Exam General: Lying in bed, in restraints, family at the bedside, awake and respon sive. Neuro: Oriented to name, , year. Disoriented to month (insists it is February), day, location. Head: Normocephalic, atraumatic. Eyes: L eye with what appears to be blepharitis with yellow crusted exudate, improving today. ENT: Moist mucous membranes Neck: Supple, no lymphadenopathy Respiratory: Lungs clear bilaterally, no distress Cardiovascular: regular rate and rhythm Abdominal: Soft, non-tender, non-distended, no peritoneal signs MSK: No edema, no unilateral swelling Medications Medications Current Medications IV Flush (NS 3 ml) 3 ml PER PROTOCOL IV ; Start 07/01/18 at 22:30 Ondansetron HCl (Zofran Inj) 4 mg Q6H PRN IV NAUSEA AND/OR VOMITING; Start 07/01/18 at 22:30 Acetaminophen (Tylenol Tab) 650 mg Q6H PRN PO PAIN LEVEL 1-3 OR FEVER; Start 07/01/18 at 22:30 Famotidine (Pepcid) 20 mg Q12 PO Last administered on 07/06/18at 09:08; Admin Dose 20 MG; Start 07/02/18 at 09:00 Multivitamins Therapeutic (Theragran) 1 tab DAILY PO Last administered on 07/02/18at 08:58; Admin Dose 1 TAB; Start 07/02/18 at 09:00; Status Hold Thiamine HCl (Vitamin B1) 100 mg DAILY PO Last administered on 07/06/18 09:08; Admin Dose 100 MG; Start 07/02/18 at 09:00 Folic Acid (Folic Acid) 1 mg DAILY PO Last administered on 07/02/18 08:57; Admin Dose 1 MG; Start 07/02/18 at 09:00; Status Hold Lorazepam (Ativan) 2 mg Q3H PRN IV etoh w/d Last administered on 07/04/18 09:51; Admin Dose 2 MG; Start 07/01/18 at 22:30 Lactulose (Enulose) 20 gm Q8 PO Last administered on 07/06/18 05:12; Admin Dose 20 GM; Start 07/03/18 at 12:00 Spironolactone (Aldactone) 50 mg DAILY PO Last administered on 07/06/18 09:08; Admin Dose 50 MG; Start 07/04/18 at 09:00 Nicotine (Nicoderm 21 Mg/ 24hr) 1 patch DAILY TRANSDERM Last administered on 07/06/18 09:08; Admin Dose 1 PATCH; Start 07/04/18 at 11:00 Gentamicin Sulfate (Gentamicin 0.3% Oph Drop) 1 drop Q4 LEFT EYE Last administered on 07/06/18 09:07; Admin Dose 1 DROP; Start 07/04/18 at 13:00 Chlordiazepoxide (Librium) 50 mg Q12H PO Last administered on 07/06/18 09:08; Admin Dose 50 MG; Start 07/05/18 at 21:00 LUI GENAO MD Jul 06, 2018 13:07
--- NOTE | 2018-07-06 13:50 | NUR ---
Received patient in 5E. Pt placed in 5562. Will resume care at this point.
--- NOTE | 2018-07-06 17:30 | NUR ---
Spoke with Dr. Marinelli and requested for patient to be transferred to a Medsur floor. Dr. Marinelli does not want to transfer patient to Medsurg floor and wants patient to stay in [facility] because he is delirious and might need a sitter and restraint. Nurse Cyber Instructor, Bernardo, sonia. Patient will continue to be in 5562 at this time.
--- NOTE | 2018-07-06 18:15 | NUR ---
END OF SHIFT NOTES: PT STABLE, ALERT & ORIENTED X2-3. NO DISTRESS NOTED. INSTRUCTED PT TO CALL FOR ASSISTANCE. VS WNL. HOURLY ROUNDING. CALL LIGHT WITHIN REACH.ALL NEEDS MET. NO NEW COMPLAINTS
[2018-07-07] MEDS: GENTAMICIN 0.3% 5 ML OPH LEFT EYE SCH ×6 (00:32→21:21)
[2018-07-07 02:39] VITALS: BP 110/73; PULSE 77; RESP 18
[2018-07-07] MEDS: LACTULOSE 30ML CUP PO SCH ×3 (06:08→21:21)
--- NOTE | 2018-07-07 06:38 | NUR ---
Shift summary: Patient is alert and oriented x2, jaundice with distended abdomen. Family at bedside, concerned if paracentesis is needed. Explained to the family that ultrasound of the abdomen done shows minimal ascitic fluid and paracentesis is not necessary. This morning patient was more confused, He got out of bed 3x. Patient was assisted back to bed, no fall occurrence. hourly rounding done.
--- NOTE | 2018-07-07 09:00 | NUR ---
PT evaluation Therapy day number 1 Evaluation Start Time 09:00 Evaluation End Time 10:00 Evaluation Total Time 60 min Subjective Denies pain Pain Scale NUMERIC Pain Intensity 0 (0-10) Patient Stated Goal for Pain Relief 0 (0-10) Pain Level Comment denies pain Pre Treatment Vital Signs Stable Yes Supine to Sit Supervised Transfer Sit to Stand Ability Minimum Assist Bed Mobility Sit to Supine Supervised Bed Transfer Ability Moderate Assist Chair Transfer Ability Moderate Assist Additional Mobility Comments mod A due to poor postural awareness Gait Assist Levels Moderate Assist Assistive Devices Front Wheel Walker Ambulation Distance 50 feet Additional Gait Comments See technical note Static Sitting Balance Fair Dynamic Sitting Balance Poor Standing Static Balance Poor Dynamic Standing Balance Poor Additional Balance Assessments Comments requires FWW and mod A to maintain posture Safety Judgement Poor Activity Tolerance Poor Equipment Present IV pump Post Treatment Pain Intensity 0 0-10 Additional Post Treatment Comment See note Total Minutes 60 Total Units 4 PT Technical Record Comment 48 yo male presents with abdominal pain, previously recieved ultrasound guided paracentesis but unaware of amount removed or date. Abdominal US indicates liver cirrhosis and small amount of ascites with thickened and edematous gallbladder PMH: hypertension, dyslipidemia and alcohol abuse Precaution: fall risk PLOF: patient lives in 2nd level apartment with stair access. Previously ambulating with no AD mod I, no DME available S: Patient in bed, with family present at bedside. Pt agreeable to PT evaluation. Pt cleared for activity per RN O:PT evaluation completed, pt returned back to bed following therapy intervention with call light within reach and bed alarm activated. Spoke to RN regarding pt response to activity and PT plan of care. No reports of pain, dizziness, or shortness of breath with activity. Patient educated on functional mobility limitations, use of FWW, and PT POC A: Patient presents with significant balance limitations with poor postural awareness. Throughout, pt leans heavily to R with poor righting reactions. Patient presents with forward posture with poor stride length and gait mychal. Patient ambulates with narrow base of support, and despite demonstrates good strength bilaterally, pt presents with moderate tremors in standing which limit safe mobility and balance. As such, patient high fall risk for mobility. Patient could benefit from skilled inpatient PT to improve safety and balance, to improve safety, balance, and functional mobility P: Progress with FWW as tolerated Recommendation: Pt will require FWW for safe mobility due to high fall risk
[2018-07-07 09:07] VITALS: BP 103/63; PULSE 74; RESP 16
[2018-07-07] MEDS: THIAMINE 100 MG TAB PO SCH (09:08)
[2018-07-07] MEDS: FAMOTIDINE 20 MG TAB PO SCH ×2 (09:08→21:21)
[2018-07-07] MEDS: SPIRONOLACTONE 50 MG TAB PO SCH (09:08)
[2018-07-07] MEDS: NICOTINE (21 MG/24 HR) PATCH TRANSDERM SCH (09:11)
[2018-07-07] MEDS ORDERED: MAGNESIUM SULFATE 2 GM/50 ML 50 ML IVPB ONE (09:30)
[2018-07-07] MEDS ORDERED: POTASSIUM CHLORIDE 20 MEQ POWDER FOR ORAL SOLN PO ONE (09:30)
--- NOTE | 2018-07-07 11:30 | NUR ---
SS Note: Consult SW received order pt's worried that pt will be disabled and not able to work. They will need support. The patient is a 48-year-old male with a history of hypertension, dyslipidemia and alcohol abuse transfer from outside hospital complaining due to alcoholic intoxication/withdrawal and decompensated alcoholic liver disease with ascites, per record. SW met with pt's spouse, Ritika Richter , at bedside. Pt's spouse appeared to be very involved and supportive. Pt was sleeping and per record, pt is alert and oriented x2. Per spouse, pt has a long hx of consuming etoh on and off; his beverage of choice is beer and last use was on Wednesday07/01/18. No known hx of psych illness. Spouse reported pt was recently diagnosed with cirrhosis and she is worried he will be unable to work and she will have to stay at home to take care of him. 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 Per spouse, they 4 adult children and one 14-year-old daughter. Per spouse, they just started to receive [employer] [place] and [employer] for daughter. Pt lives at address on [place] with spouse. Pt was independent with ADL's and was not requiring DME. Pt has [employer] insurance. Spouse stated pt does not have a PCP. SW provided listening, support, and reassurance. SW discussed and provided resources such as [facility], [facility], and [facility] for outpatient f/u. Pt's spouse was also provided with substance abuse tx resources for pt. Pt's spouse verbalized appreciation for the visit and resources. SW assessed for other needs, which were denied at this time. Pt is not medically cleared at this time. Tentative d/c is plan is home. SW remains available for f/u as needed.
--- NOTE | 2018-07-07 17:50 | PN ---
Date/Time of Note Date/Time of Note DATE: 07/07/18 TIME: 17:47 Assessment/Plan VTE Prophylaxis Risk score (from Ns)>0 risk: 2 SCD applied (from [facility]): Yes Pharmacological prophylaxis: NA/contraindicated Pharm contraindication: thrombocytopenia Lines/Catheters IV [facility] (from [facility] Saline Lock Urinary Cath still in place: No Assessment/Plan Assessment/Plan 48-year-old male with a history of hypertension, dyslipidemia and alcohol abuse who initially presented on outside hospital complaining of abdominal pain, with signs of alcohol intoxication. # Alcohol /withdrawal - resolved - Frequent reorientation. - Continue MVI, folic acid, thiamine - Off benzos #L eye blepharitis/conjunctivitis - Ophthalmic gentamicin - Warm damp washcloth to clean eye # Cirrhosis with ascites - Patient had a paracentesis at the outside facility, but apparently unclear how much fluid was removed - Mental status is more consistent with delerium/EtOH withdrawal instead of hepatic encephalopathy.... but will continue lactulose. - Counseled on drinking cessation #Tobacco use - Multiple cigars per day - nicotine patch. Dispo: Anticipate discharge home tomorrow. Result Diagram: 07/07/18 0552 07/07/18 0552 Results 24hrs Laboratory Tests Test 07/07/18 05:52 White Blood Count 8.6 Red Blood Count 3.46 L Hemoglobin 12.8 L Hematocrit 36.1 L Mean Corpuscular Volume 104.3 H Mean Corpuscular Hemoglobin 37.0 H Mean Corpuscular Hemoglobin Concent 35.5 Red Cell Distribution Width 14.2 Platelet Count 98 L Mean Platelet Volume 10.1 Immature Granulocytes % 0.500 H Neutrophils % 63.6 Lymphocytes % 16.2 Monocytes % 14.8 H Eosinophils % 3.9 Basophils % 1.0 Nucleated Red Blood Cells % 0.0 Immature Granulocytes # 0.040 H Neutrophils # 5.5 Lymphocytes # 1.4 Monocytes # 1.3 H Eosinophils # 0.3 Basophils # 0.1 Nucleated Red Blood Cells # 0.0 Sodium Level 142 Potassium Level 3.4 L Chloride Level 107 Carbon Dioxide Level 26 Anion Gap 9 Blood Urea Nitrogen 4 L Creatinine 0.46 L Est Glomerular Filtrat Rate mL/min > 60 Glucose Level 83 Calcium Level 8.8 Phosphorus Level 3.7 Magnesium Level 1.4 L Total Bilirubin 1.4 H Direct Bilirubin 0.00 Indirect Bilirubin 1.4 H Aspartate Amino Transf (AST/SGOT) 78 H Alanine Aminotransferase (ALT/SGPT) 28 Alkaline Phosphatase 127 H Total Protein 6.2 Albumin 2.4 L Globulin 3.80 H Albumin/Globulin Ratio 0.63 Subjective 24 Hr Interval Summary Free Text/Dictation No acute overnight events. Ambulated with physical therapy today, but very wobbly. According to he's near baseline mental status. Exam/Review of Systems Exam Vitals General: Lying in bed sleeping comfortably. Head: Normocephalic, atraumatic. Eyes: L eye with what appears to be blepharitis, improving today. ENT: Moist mucous membranes Neck: Supple, no lymphadenopathy Respiratory: Lungs clear bilaterally, no distress Cardiovascular: regular rate and rhythm Abdominal: Soft, non-tender, non-distended, no peritoneal signs MSK: No edema, no unilateral swelling Results Results 24hrs Laboratory Tests Test 07/07/18 05:52 White Blood Count 8.6 Red Blood Count 3.46 L Hemoglobin 12.8 L Hematocrit 36.1 L Mean Corpuscular Volume 104.3 H Mean Corpuscular Hemoglobin 37.0 H Mean Corpuscular Hemoglobin Concent 35.5 Red Cell Distribution Width 14.2 Platelet Count 98 L Mean Platelet Volume 10.1 Immature Granulocytes % 0.500 H Neutrophils % 63.6 Lymphocytes % 16.2 Monocytes % 14.8 H Eosinophils % 3.9 Basophils % 1.0 Nucleated Red Blood Cells % 0.0 Immature Granulocytes # 0.040 H Neutrophils # 5.5 Lymphocytes # 1.4 Monocytes # 1.3 H Eosinophils # 0.3 Basophils # 0.1 Nucleated Red Blood Cells # 0.0 Sodium Level 142 Potassium Level 3.4 L Chloride Level 107 Carbon Dioxide Level 26 Anion Gap 9 Blood Urea Nitrogen 4 L Creatinine 0.46 L Est Glomerular Filtrat Rate mL/min > 60 Glucose Level 83 Calcium Level 8.8 Phosphorus Level 3.7 Magnesium Level 1.4 L Total Bilirubin 1.4 H Direct Bilirubin 0.00 Indirect Bilirubin 1.4 H Aspartate Amino Transf (AST/SGOT) 78 H Alanine Aminotransferase (ALT/SGPT) 28 Alkaline Phosphatase 127 H Total Protein 6.2 Albumin 2.4 L Globulin 3.80 H Albumin/Globulin Ratio 0.63 LUI GENAO MD Jul 07, 2018 17:50
--- NOTE | 2018-07-07 18:46 | NUR ---
Shift Notes: alert to self, able to make needs known. Unsteady gait. Continue on lactulose. Pt had 1 soft bm today. Magnesium And K replaced. Skin intact. SW talked to pt .
[2018-07-07 20:04] VITALS: BP 113/72; PULSE 80; RESP 17
[2018-07-08] MEDS: GENTAMICIN 0.3% 5 ML OPH LEFT EYE SCH ×6 (01:40→21:05)
[2018-07-08 02:22] VITALS: BP 119/74; PULSE 71; RESP 18
[2018-07-08] MEDS: LACTULOSE 30ML CUP PO SCH ×3 (05:26→21:05)
--- NOTE | 2018-07-08 06:26 | NUR ---
RN NOTES No significant change in condition. Slept comfortably. at bedside. All nursing needs attended. Will continue to monitor. Noah is medication compliant.
[2018-07-08 08:00] VITALS: BP 89/51; PULSE 83; RESP 18
[2018-07-08] MEDS: NICOTINE (21 MG/24 HR) PATCH TRANSDERM SCH (08:59)
[2018-07-08] MEDS: THIAMINE 100 MG TAB PO SCH (09:00)
[2018-07-08] MEDS: SPIRONOLACTONE 50 MG TAB PO SCH (09:00)
[2018-07-08] MEDS: FAMOTIDINE 20 MG TAB PO SCH ×2 (09:00→21:05)
--- NOTE | 2018-07-08 10:40 | NUR ---
SS Note: Consult SW received order pt's brother is concerned that pt's is contributing to his alcohol abuse. SW met with pt's spouse yesterday and is familiar with case. See previous note. SW spoke with pt's brother, Esteban Carver , to assess concern and assist as needed. Pt's brother reported pt lives with his spouse and 3 children (adult children in their 20's and 14-year-old) and the adult children have informed pt's family that pt's "buys the beer for him". Pt's brother stated he's tried to speak to pt to encourage him to change his lifestyle, however, pt ends up getting mad. Family is concerned about pt's health and they want him to go to rehab and do not want pt to be his . Per brother, the family does not have a good relationship with pt's spouse. Pt's brother wants to know if there is something that can be done. SPENCER provided active listening and support. SPENCER advised brother pt has the right to self determination and to make his own choices. SW advised this is a personal concern and encouraged for the family to meet to discuss and resolve their family dynamic issues. SPENCER discussed and emailed the brother substance abuse tx resources and support groups for families of alcoholics. Pt's brother verbalize appreciation for the call back and resources provided. No other needs identified at this time. SW remains available.
--- NOTE | 2018-07-08 12:19 | NUR ---
CM notes Spoke to Dr Marinelli regarding d/c options. Rehab vs SNF. Called Tristen from [facility] will eval patient. Le [phone]
[2018-07-08 14:00] VITALS: BP 91/53; PULSE 86; RESP 18
--- NOTE | 2018-07-08 15:24 | PN ---
Date/Time of Note Date/Time of Note DATE: 07/08/18 TIME: 15:21 Assessment/Plan VTE Prophylaxis Risk score (from Ns)>0 risk: 2 SCD applied (from Ns): Yes Pharmacological prophylaxis: NA/contraindicated Pharm contraindication: low risk/ambulating Lines/Catheters IV Catheter Type (from Nrs): Saline Lock Urinary Cath still in place: No Assessment/Plan Assessment/Plan 48-year-old male with a history of hypertension, dyslipidemia and alcohol abuse who initially presented on outside hospital complaining of abdominal pain, with signs of alcohol intoxication. # Alcohol /withdrawal - resolved #L eye blepharitis/conjunctivitis - resolved # Cirrhosis with ascites - Patient had a paracentesis at the outside facility, but apparently unclear how much fluid was removed - Continue lactulose - Counseled on drinking cessation #Tobacco use - Multiple cigars per day - nicotine patch. Dispo: Patient lives in a second floor apartment with stairs only. Currently can walk assisted with walker; very poor balance, unlikely he can navigate stairs. It looks like he's been in bed all day. Will encourage ambulation. ARU consult. Result Diagram: 07/08/18 0516 07/08/18 0516 Results 24hrs Laboratory Tests Test 07/08/18 05:16 White Blood Count 8.9 Red Blood Count 3.38 L Hemoglobin 12.7 L Hematocrit 36.0 L Mean Corpuscular Volume 106.5 H Mean Corpuscular Hemoglobin 37.6 H Mean Corpuscular Hemoglobin Concent 35.3 Red Cell Distribution Width 14.2 Platelet Count 98 L Mean Platelet Volume 10.7 H Immature Granulocytes % 0.300 Neutrophils % 66.7 Lymphocytes % 14.9 L Monocytes % 14.5 H Eosinophils % 2.8 Basophils % 0.8 Nucleated Red Blood Cells % 0.0 Immature Granulocytes # 0.030 Neutrophils # 6.0 Lymphocytes # 1.3 Monocytes # 1.3 H Eosinophils # 0.3 Basophils # 0.1 Nucleated Red Blood Cells # 0.0 Sodium Level 141 Potassium Level 3.7 Chloride Level 108 Carbon Dioxide Level 25 Anion Gap 8 Blood Urea Nitrogen 5 L Creatinine 0.43 L Est Glomerular Filtrat Rate mL/min > 60 Glucose Level 81 Calcium Level 8.8 Total Bilirubin 1.2 Direct Bilirubin 0.00 Indirect Bilirubin 1.2 H Aspartate Amino Transf (AST/SGOT) 71 H Alanine Aminotransferase (ALT/SGPT) 23 Alkaline Phosphatase 135 H Total Protein 6.2 Albumin 2.4 L Globulin 3.80 H Albumin/Globulin Ratio 0.63 Subjective 24 Hr Interval Summary Free Text/Dictation Patient still very off balance when trying to walk today. Exam/Review of Systems Exam Vitals Vital Signs Date Temp Pulse Resp B/P (MAP) Pulse Ox O2 O2 Flow FiO2 Time Delivery Rate 07/08/18 98.0 86 18 91/53 (66) 95 Room Air 14:00 07/05/18 2.0 27 04:50 Intake and Output 07/07/18 07/07/18 07/08/18 1414:59 22:59 06:59 IntakeIntake Total 50 ml 250 ml OutputOutput Total 500 ml BalanceBalance -450 ml 250 ml Exam General: Sitting up in bed. Head: Normocephalic, atraumatic. Eyes: L eye erythema and swelling has resolved. ENT: Moist mucous membranes Neck: Supple, no lymphadenopathy Respiratory: Lungs clear bilaterally, no distress Cardiovascular: regular rate and rhythm Abdominal: Soft, non-tender, non-distended, no peritoneal signs MSK: No edema, no unilateral swelling Results Results 24hrs Laboratory Tests Test 07/08/18 05:16 White Blood Count 8.9 Red Blood Count 3.38 L Hemoglobin 12.7 L Hematocrit 36.0 L Mean Corpuscular Volume 106.5 H Mean Corpuscular Hemoglobin 37.6 H Mean Corpuscular Hemoglobin Concent 35.3 Red Cell Distribution Width 14.2 Platelet Count 98 L Mean Platelet Volume 10.7 H Immature Granulocytes % 0.300 Neutrophils % 66.7 Lymphocytes % 14.9 L Monocytes % 14.5 H Eosinophils % 2.8 Basophils % 0.8 Nucleated Red Blood Cells % 0.0 Immature Granulocytes # 0.030 Neutrophils # 6.0 Lymphocytes # 1.3 Monocytes # 1.3 H Eosinophils # 0.3 Basophils # 0.1 Nucleated Red Blood Cells # 0.0 Sodium Level 141 Potassium Level 3.7 Chloride Level 108 Carbon Dioxide Level 25 Anion Gap 8 Blood Urea Nitrogen 5 L Creatinine 0.43 L Est Glomerular Filtrat Rate mL/min > 60 Glucose Level 81 Calcium Level 8.8 Total Bilirubin 1.2 Direct Bilirubin 0.00 Indirect Bilirubin 1.2 H Aspartate Amino Transf (AST/SGOT) 71 H Alanine Aminotransferase (ALT/SGPT) 23 Alkaline Phosphatase 135 H Total Protein 6.2 Albumin 2.4 L Globulin 3.80 H Albumin/Globulin Ratio 0.63 Medications Medication Current Medications IV Flush (NS 3 ml) 3 ml PER PROTOCOL IV ; Start 07/01/18 at 22:30 Ondansetron HCl (Zofran Inj) 4 mg Q6H PRN IV NAUSEA AND/OR VOMITING; Start 07/01/18 at 22:30 Acetaminophen (Tylenol Tab) 650 mg Q6H PRN PO PAIN LEVEL 1-3 OR FEVER; Start 07/01/18 at 22:30 Famotidine (Pepcid) 20 mg Q12 PO Last administered on 07/08/18 09:00; Admin Dose 20 MG; Start 07/02/18 at 09:00 Multivitamins Therapeutic (Theragran) 1 tab DAILY PO Last administered on 08:58; Admin Dose 1 TAB; Start 07/02/18 at 09:00; Status Hold Thiamine HCl (Vitamin B1) 100 mg DAILY PO Last administered on 07/08/18 09:00; Admin Dose 100 MG; Start 07/02/18 at 09:00 Folic Acid (Folic Acid) 1 mg DAILY PO Last administered on 07/02/18 08:57; Admin Dose 1 MG; Start 07/02/18 at 09:00; Status Hold Lactulose (Enulose) 20 gm Q8 PO Last administered on 07/08/18 12:44; Admin Dose 20 GM; Start 07/03/18 at 12:00 Spironolactone (Aldactone) 50 mg DAILY PO Last administered on 07/08/18 09:00; Admin Dose 50 MG; Start 07/04/18 at 09:00 Nicotine (Nicoderm 21 Mg/ 24hr) 1 patch DAILY TRANSDERM Last administered on 07/08/18 08:59; Admin Dose 1 PATCH; Start 07/04/18 at 11:00 Gentamicin Sulfate (Gentamicin 0.3% Oph Drop) 1 drop Q4 LEFT EYE Last administered on 07/08/18 12:44; Admin Dose 1 DROP; Start 07/04/18 at 13:00 LUI GENAO MD Jul 08, 2018 15:24
--- NOTE | 2018-07-08 16:18 | NUR ---
NUTRITION NOTE: Pt with PMH etoh, HTN, cirrhosis with ascites. Asleep at time of visit. Per , tolerating PO with excellent appetite. No n/v/d. On Vit B1, folic acid currently held. Considering h/o alcoholism, pt may be at risk of malnutrition. Rec to add daily MVI/Min for repletion.
--- NOTE | 2018-07-08 16:32 | NUR ---
PT [facility] Patient: Noah Carver : 1970 Age/Sex: 48/M Unit#: [id number] Room/Bed: 5562/A User: Carmella Zhang PTA Date: 07/08/18 16:32 Type: PT Technical Record Therapy day number 2 Subjective Denies pain Pain Scale NUMERIC Pain Intensity 0 (0-10) Patient Stated Goal for Pain Relief 0 (0-10) Pain Level Comment denied pain Transfer Training Start Time 16:00 Supine to Sit Stand by Assist Transfer Sit to Stand Ability Minimum Assist Bed Mobility Sit to Supine Stand by Assist Transfer Training End Time 16:10 Total Transfer Training Time 10 min (8-127) Gait Training Start Time 16:10 Gait Assist Levels Moderate Assist Assistive Devices Front Wheel Walker Ambulation Distance 50 feet Additional Gait Comments heavily leans to R side, NBOS, short step length, AD management Gait Training End Time 16:32 Total Gait Training Treatment Time 22 min (8-127) Static Sitting Balance Fair Dynamic Sitting Balance Poor plus Standing Static Balance Poor Dynamic Standing Balance Poor Additional Balance Assessments Comments FWW Safety Judgement Poor Activity Tolerance Poor Post Treatment Pain Intensity 0 0-10 Total Treament Time 32 min (8-127) Total Minutes 32 Total Units 2 PT Technical Record Comment S: PANCHO Louis cleared pt for PT. Pt denied pain and agreeable to tx O: Received pt sleeping in semifowler w/ present in room. VC/TC to rouse. See above for assist levels. Gait training x 50' and presented with NBOS, short step length/stride, and leans heavily to R side. Required VC/TC for posture awareness. Returned pt back to room/bed. Positioned pt to comfort in semifowler. Call light/phone within reach. Bed alarm on. Needs met. RN informed of pt status and PT activities A: Poor tolerance to tx. Required modA for gait training as patient leans heavily to right. LOB x3 and required assistance to recover. May benefit for more strengthening and balance exercises P: Continue w/ POC and progress as tolerated
--- NOTE | 2018-07-08 17:33 | NUR ---
END OF SHIFT SUMMARY Pt alert x 2-3. All due meds given as ordered no acute distress noted. at bedside. PT very qeak on right side. PT worked with PT today but they stated he is very weak, good candidate for ARU as per order. She had some concern regarding his brothers and family members wanting information, they have both stated only Shorty Lazar and her can have information. Will endorse new plan of care to oncoming shift.
[2018-07-08 19:59] VITALS: BP 101/65; PULSE 78; RESP 20
[2018-07-09] MEDS: GENTAMICIN 0.3% 5 ML OPH LEFT EYE SCH ×5 (01:00→17:23)
[2018-07-09 01:52] VITALS: BP 100/66; PULSE 77; RESP 20
[2018-07-09] MEDS: LACTULOSE 30ML CUP PO SCH ×2 (05:28→13:10)
--- NOTE | 2018-07-09 06:32 | NUR ---
SHIFT NOTES; PATIENT SLEPT WELL. NO RESP. DISTRESS NOTED.VITAL SIGNS STABLE. DENIES PAIN OR DISCOMFORT.
[2018-07-09 08:00] VITALS: BP 94/58; PULSE 83; RESP 18
[2018-07-09] MEDS: FAMOTIDINE 20 MG TAB PO SCH (08:17)
[2018-07-09] MEDS: SPIRONOLACTONE 50 MG TAB PO SCH (08:17)
[2018-07-09] MEDS: THIAMINE 100 MG TAB PO SCH (08:17)
[2018-07-09] MEDS: NICOTINE (21 MG/24 HR) PATCH TRANSDERM SCH (08:18)
--- NOTE | 2018-07-09 12:27 | NUR ---
Per Trish from ARU, there is no liason present today for ARU evaluation for this patient.
[2018-07-09] MEDS ORDERED: DISU500T2 PO (12:34)
--- NOTE | 2018-07-09 12:37 | PDOCDIS ---
Discharge Instructions DIAGNOSIS Discharge Diagnosis Alcohol withdrawal CONDITION [id number] Patient Condition: [id number] Fair HOME CARE INSTRUCTIONS: [id number] Diet Instructions: [id number] Regular ACTIVITY: [id number] Activity Restrictions: Oikiz7r No Restrictions FOLLOW UP/APPOINTMENTS Follow-up Plan 1. Completely abstain from alcohol. 2. Take disulfiram every morning. This will not reduce cravings for alcohol but will cause nausea and vomiting if you do drink. 3. Your chances for abstinence are best if you join a group like Alcoholics Anonymous. LUI GENAO MD Jul 09, 2018 12:37
--- NOTE | 2018-07-09 12:48 | NUR ---
ARU to decide evaluation result.
[2018-07-09 14:00] VITALS: BP 130/78; PULSE 88; RESP 16
--- NOTE | 2018-07-09 15:21 | NUR ---
ACUTE REHAB CONSULT ARU Consult orders received, verified. Pre admission screen and review of patient clinical information with ARU Track Sweeper determined patient to benefit from discharge home with HH PT and 24 HR supervision vs SNF Thank you for the referral. Tristen Carver [facility] [phone]
--- NOTE | 2018-07-09 16:56 | DS ---
Date/Time of Note Date/Time of Note DATE: 07/09/18 TIME: 16:54 Discharge Summary Admission/Discharge Info Admit Date/Time Jul 01, 2018 at 21:05 Discharge Date/Time Jul 09, 2018 Discharge Diagnosis Alcohol withdrawal Patient Condition: Fair Consults None Procedures None Hx of Present Illness This is a 48-year-old male with a history of hypertension, dyslipidemia and alcohol abuse who initially presented on outside hospital complaining of abdominal pain. Symptoms been going on for the past several days. Patient has been drinking. Reportedly he was anxious and had tremors. At the outside facility he he had ultrasound-guided paracentesis. I am not sure how much was removed. Lab shows bilirubin of 3.4. I do not see aminotransferases. He was transferred to [facility] for insurance reason. Currently patient is significantly agitated with tremors. Obtaining any information has been difficult. His is at the bedside and through the help of sitter hop picker, she said that he has been drinking daily. Currently patient has been placed on restraints. Hospital Course Patient was started on Librium and required frequent Ativan. For the first 3-4 days he was restrained in bed for pulling out IV, trying to get out of bed, and being non-redirectable. He was also given multivitamin and thiamine. Eventually he was weaned off Librium and no longer requiring Ativan. Still very unbalanced, wobbly. Discharge home with walker per PT cat. Family requested a "pill to make him stop drinking", I explained this isn't possible but will send him home with disulfiram. Home Meds Active Scripts Disulfiram (Antabuse) 500 Mg Tablet, 500 MG PO DAILY, #14 TAB Prov:LUI GENAO MD 07/09/18 Follow-up Plan 1. Completely abstain from alcohol. 2. Take disulfiram every morning. This will not reduce cravings for alcohol but will cause nausea and vomiting if you do drink. 3. Your chances for abstinence are best if you join a group like Alcoholics Anonymous. Primary Care Provider Not On Staff Doctor Time spent on discharge: > 30 minutes Pending Labs Laboratory Tests Test 07/09/18 07:05 White Blood Count 8.6 10^3/ul (4.8-10.8) Red Blood Count 3.85 10^6/ul (4.70-6.10) Hemoglobin 14.3 g/dl (14.0-18.0) Hematocrit 40.8 % (42.0-52.0) Mean Corpuscular Volume 106.0 fl (82.0-101.0) Mean Corpuscular Hemoglobin 37.1 pg (29.0-33.0) Mean Corpuscular Hemoglobin Concent 35.0 g/dl (32.0-37.0) Red Cell Distribution Width 13.8 % (11.5-14.5) Platelet Count 106 10^3/UL (140-415) Mean Platelet Volume 10.5 fl (7.4-10.4) Immature Granulocytes % 0.500 % (0.001-0.429) Neutrophils % 64.2 % (39.0-77.0) Lymphocytes % 17.3 % (15.0-51.0) Monocytes % 13.3 % (0.0-11.0) Eosinophils % 3.5 % (0.0-7.0) Basophils % 1.2 % (0.0-2.0) Nucleated Red Blood Cells % 0.0 /100WBC (0.0-0.0) Immature Granulocytes # 0.040 10^3/ul (0.0-0.031) Neutrophils # 5.5 10^3/ul (1.6-7.5) Lymphocytes # 1.5 10^3/ul (0.8-2.9) Monocytes # 1.2 10^3/ul (0.3-0.9) Eosinophils # 0.3 10^3/ul (0.0-0.5) Basophils # 0.1 10^3/ul (0.0-0.1) Nucleated Red Blood Cells # 0.0 10^3/ul (0.0-0.0) Sodium Level 143 mmol/L (135-144) Potassium Level 4.0 mmol/L (3.5-5.1) Chloride Level 105 mmol/L (97-110) Carbon Dioxide Level 27 mmol/L (21-31) Anion Gap 11 (5-13) Blood Urea Nitrogen 5 mg/dl (7-20) Creatinine 0.48 mg/dl (0.61-1.24) Est Glomerular Filtrat Rate mL/min > 60 mL/min (>60) Glucose Level 80 mg/dl (70-220) Calcium Level 9.1 mg/dl (8.4-10.2) Phosphorus Level 4.2 mg/dl (2.5-4.9) Magnesium Level 1.4 mg/dl (1.7-2.5) Total Bilirubin 1.5 mg/dl (0.2-1.3) Direct Bilirubin 0.00 mg/dl (0.00-0.20) Indirect Bilirubin 1.5 mg/dl (0-1.1) Aspartate Amino Transf (AST/SGOT) 84 IU/L (15-46) Alanine Aminotransferase (ALT/SGPT) 28 IU/L (13-69) Alkaline Phosphatase 156 IU/L (42-121) Total Protein 7.2 g/dl (6.1-8.1) Albumin 2.8 g/dl (3.3-4.9) Globulin 4.40 g/dl (1.3-3.2) Albumin/Globulin Ratio 0.63 LUI GENAO MD Jul 09, 2018 16:56
--- NOTE | 2018-07-09 18:58 | NUR ---
DISCHARGE NOTES PT D/C TO HOME VIA WHEELCHAIR ACCOMPANIED BY FAMILY, WHEELED DOWNSTAIRS BY [employer] RECONCILIATION COORDINATOR. PT HAS WALKER WITH HIM FROM [employer]. IV REMOVED, CATHETER INTACT. DISCHARGE INSTRUCTIONS GIVEN. PROVIDED WITH THE OPPORTUNITY TO ASK QUESTIONS. INFORMED PT TO ABSTAIN FROM ALCOHOL. PRESCRIPTION WAS GIVEN TO PT. PT IS TO TAKE MEDICATIONS PRESCRIBED. INFORMED PT TO CALL 911 OR GO TO THE NEAREST EMERGENCY ROOM IF EXPERIENCING CHEST PAIN, SHORTNESS OF BREATH, DIFFICULTY SPEAKING, VISION CHANGES, CONFUSION, OR ANY DISCOMFORT. PT VERBALIZES UNDERSTANDING OF DISCHARGE INSTRUCTIONS. PT ALERT AND STABLE UPON DISCHARGE.
--- NOTE | 2018-07-10 10:52 | NUR ---
Shower chair was ordered from [employer]. Faxed request. for home delivery.
== END 2018-07-09 18:45 | disposition home or self-care (01) | DRG 896 ==
LOC: TEL 21:05 → 5EC 07-06 13:41
PROVIDERS: ADMIT Internal Medicine; ATTEND Internal Medicine
DX: F10.221 Alcohol dependence with intoxication delirium (principal); G92 Toxic encephalopathy; F10.239 Alcohol dependence with withdrawal, unspecified; K70.31 Alcoholic cirrhosis of liver with ascites; I10 Essential (primary) hypertension; H01.006 Unspecified blepharitis left eye, unspecified eyelid; H10.9 Unspecified conjunctivitis; Z72.0 Tobacco use
CPT/HCPCS: 76700; 80048; 80053; 80061; 80076; 80307; 81001; 82140; 83036; 83735; 84100; 85025; 85610; 85730; 86704; 86706; 86709; 86803; 87340; 97116; 97162; 97530; J1200; J1630; J2060; J3475; J7030